=== PATIENT | female | born 1975 | race American Indian/Alaskan Native ===

== ENCOUNTER 2021-10-24 22:26 | Emergency (ER) | payer SELFPAY ==
[2021-10-24 22:51] VITALS: BP 141/75
[2021-10-24] MEDS ORDERED: IBUPROFEN 600 MG TAB PO ONE (22:54)
== END 2021-10-25 03:44 | disposition left against medical advice (07) ==
LOC: ED 22:26
DX: M79.18 Myalgia, other site (principal); Z53.21 Procedure and treatment not carried out due to patient leaving prior to being seen by health care provider

== ENCOUNTER 2021-10-26 18:34 | Emergency (ER) | payer SELFPAY ==
[2021-10-26 20:06] VITALS: BP 111/64
== END 2021-10-27 04:57 | disposition left against medical advice (07) ==
LOC: ED 18:34
DX: R50.9 Fever, unspecified (principal); Z53.21 Procedure and treatment not carried out due to patient leaving prior to being seen by health care provider